=== PATIENT | female | born 1930 | race Caucasian/White ===

== ENCOUNTER 2017-12-13 14:54 | Emergency (ER) | payer OTHER ==
[~2017-12-13] VITALS: Ht 154.9 cm; Wt 63.1 kg
[2017-12-13 17:44] VITALS: BP 174/69
== END 2017-12-13 17:45 | disposition home or self-care (01) ==
LOC: EME 14:54
DX: S91.011A Laceration without foreign body, right ankle, initial encounter (principal); W22.8XXA Striking against or struck by other objects, initial encounter; Y92.531 Health care provider office as the place of occurrence of the external cause; Z23 Encounter for immunization; Z96.653 Presence of artificial knee joint, bilateral; Z79.82 Long term (current) use of aspirin; Z79.02 Long term (current) use of antithrombotics/antiplatelets; Z87.891 Personal history of nicotine dependence